=== PATIENT | female | born 1955 | race Caucasian/White ===

== ENCOUNTER 2017-03-30 12:50 | Emergency (ER) | payer OTHER ==
[~2017-03-30] VITALS: Ht 160 cm; Wt 60.7 kg
[~2017-03-30 12:50] MED LIST: CELEXA40 MG PO; Cymbalta PO; Duragesic TD; Milk Of Magnesia,MOM PO; PERCOCET 10/1 TABLET PO; Senokot S,Pericolace PO; THERAGRAN1 TABLET PO; ZITHROMAX250 MG PO
[2017-03-30 13:59] LABS: HEMATOCRIT 45.5 % (36.0-46.0); HEMOGLOBIN 15.9 G/DL (11.9-15.5); MCH 32.8 PG (29.0-34.0); MCHC 34.9 G/DL (30.0-36.0); MCV 93.8 FL (83-99); PLATELET COUNT 349 K/uL (156-360); RBC DIS.WIDTH-CV 13.2 % (11.8-14.6); RBC DIS.WIDTH-SD 45.5 % (39-53); RED BLOOD COUNT 4.85 M/uL (3.80-5.20); WHITE BLOOD COUNT 6.7 K/uL (4.1-10.2)
[2017-03-30 14:07] LABS: CHLORIDE 107 mEq/L (99-109); POTASSIUM 4.1 mEq/L (3.7-5.4); SODIUM 143 mEq/L (136-147)
[2017-03-30 14:09] LABS: GLUCOSE 108 mg/dL (70-99)
[2017-03-30 14:12] LABS: SERUM ETHYL ALCOHOL 203 mg/dL
[2017-03-30 14:13] LABS: CREATININE 0.7 mg/dL (0.6-1.3); GFR ESTIMATE (CALCULATED) > 59 mL/min/
[2017-03-30 14:14] LABS: UREA NITROGEN (BUN) 9 mg/dL (9-23)
[2017-03-30 16:13] LABS: AMPHETAMINE NEGATIVE (500 ng/mL); BARBITURATES NEGATIVE (200 ng/mL); BENZODIAZEPINES NEGATIVE (150 ng/mL); BUPRENORPHINE NEGATIVE (10 ng/mL); COCAINE NEGATIVE (150 ng/mL); METHADONE NEGATIVE (200 ng/mL); METHAMPHETAMINE NEGATIVE (500 ng/mL); OPIATES (MORPHINE) NEGATIVE (100 ng/mL); OXYCODONE NEGATIVE (100 ng/mL); PHENCYCLIDINE NEGATIVE (25 ng/mL); PROPOXYPHENE NEGATIVE (300 ng/mL); THC CANNABINOIDS NEGATIVE (50 ng/mL); TRICYCLIC ANTIDEPRESSANTS NEGATIVE (300 ng/mL)
[2017-03-30 19:05] VITALS: BP 125/87
== END 2017-03-30 19:06 | disposition home or self-care (01) ==
LOC: EME 12:50
DX: F32.9 Major depressive disorder, single episode, unspecified (principal); F10.10 Alcohol abuse, uncomplicated; F17.200 Nicotine dependence, unspecified, uncomplicated; Y90.7 Blood alcohol level of 200-239 mg/100 ml; Z90.49 Acquired absence of other specified parts of digestive tract
CPT/HCPCS: 80048; 85027; 90839; 99281; 99285; G0480